=== PATIENT | female | born 1995 | race Caucasian/White ===

== ENCOUNTER → 2019-12-26 10:10 | Outpatient (CLI) | payer OTHER, SELFPAY ==
--- NOTE | ~2019-12-26 | US_ITS ---
EXAMINATION: US OB transvaginal DATE: 12/26/2019 11:44 INDICATION: Uncertain dates. TECHNIQUE: Real-time transvaginal pelvic ultrasound was performed. COMPARISON: None. FINDINGS: The uterus measures 8.6 x 5.1 x 5.9 cm. There is an intrauterine gestational sac. A yolk sac is iden tified. The crown rump length measures 10 mm, which correlates with an estimated gestational a ge of 7 weeks and 0 day(s) (+/-) 4 day(s). heart motion is identified measuring 124 beats per m inute (bpm) by M-mode Doppler. The ovaries are not visualized. There is no free fluid in the pelvis. IMPRESSION: 1. Single living intrauterine gestation with estimated date of delivery of 08/13/2020. Reviewed, dictated and finalized at location A. TH INSURANCE SALES AGENT IMPRESSION: 1. Single living intrauterine gestation with estimated date of delivery of 08/13.
== END ==
PROVIDERS: Visit Provider Obstetrics & Gynecology
DX: O26.841 Uterine size-date discrepancy, first trimester (principal); Z3A.01 Less than 8 weeks gestation of pregnancy
CPT/HCPCS: 76817

== ENCOUNTER → 2020-03-29 08:15 | Outpatient (CLI) | payer OTHER, SELFPAY ==
--- NOTE | ~2020-03-29 | US_ITS ---
EXAMINATION: US OB >= 14 weeks Fetus DATE: 03/29/2020 09:34 INDICATION: Second trimester anatomic survey TECHNIQUE: Real-time ultrasound of the pelvis was performed. COMPARISON: 12/26/2019 FINDINGS: There is a single living fetus in vertex presentation. The placenta is anterior and 3.7 cm from the i nternal cervical os. heart rate is 152 beats per minute (bpm). cardiac activity and feta l movement are noted. The amniotic fluid index is subjectively normal. The following anatomy was identified as normal: 4 chamber heart 3 vessel cord cord insertion kidneys urinary bladder stomach spine diaphragm ventricles cisterna magna cerebellum The following biometric data were obtained: Biparietal diameter (BPD): 5.3 cm; head circumference (HC): 19.3 cm; abdominal circumference (AC): 17 .2 cm; femur length (FL): 3.5 cm. These measurements are concordant. Estimated weight is 445 g +/- 66 g, which correlates with the greater than 97th percentile when 08/13/2020 is used as estimated date of delivery. As single measurements, these parameters are each equal to the following estimated gestational ages w ith ranges of +/- 2 standard deviations: BPD: 22 weeks 33 days ( 20 weeks 4 days - 24 weeks 1 days). HC: 21 weeks 4 days ( 20 weeks 1 days - 23 weeks 0 days). AC: 22 weeks 2 days ( 20 weeks 1 days - 24 weeks 2 days). FL: 21 weeks 1 days ( 19 weeks 2 days - 22 weeks 6 days). estimated gestational age based solely on measurements from this exam is 21 weeks 6 days +/- 1 weeks 4 days. IMPRESSION: 1. Single living fetus in vertex presentation. 2. Estimated weight is 445 g +/- 66 g, which correlates with the greater than 97th percentile w hen 08/13/2020 is used as estimated date of delivery. Reviewed, dictated and finalized at location A. EDURE ANALYST IMPRESSION: 1. Single living fetus in vertex presentation. 2. Estimated weight is 445 g +/- 66 g, which correlates with the greater than 97th percentile when 08/13/2020 is used as estimated date of delivery.
== END ==
PROVIDERS: Visit Provider Obstetrics & Gynecology
DX: Z36.89 Encounter for other specified antenatal screening (principal)
CPT/HCPCS: 76805

== ENCOUNTER → 2020-07-11 13:39 | Outpatient (CLI) | payer OTHER, SELFPAY ==
--- NOTE | ~2020-07-11 | US_ITS ---
EXAMINATION: US OB follow up DATE: 07/11/2020 14:16 INDICATION: Estimated size less than expected for estimated gestational age during third trimester pr egnancy. TECHNIQUE: Real-time ultrasound of the pelvis was performed. The interpreting radiologist was not pre sent for the study. COMPARISON: 03/29/2020 FINDINGS: There is a single living fetus in vertex presentation. The placenta is anterior and not low-lying. F etal heart rate is 174 beats per minute (bpm). The amniotic fluid index is 13.8 cm, which is normal (5th%-95%: 7.9-24.9 cm at 35 weeks estimated gestational age). The following biometric data were obtained: BPD: 9.5 cm -> 38 weeks 4 days Head circumference: 33.0 cm -> 37 weeks 4 days Abdominal circumference: 35.9 cm -> 39 weeks 5 days Femur length: 7.1 cm -> 38 weeks 3 days Head circumference to abdominal circumference ratio: 0.92 (normal range 0.89-1.06). Borderline brachycephaly with cephalic index of 86.1 (normal range 70-86). Mildly decreased femoral length to abdominal circumference ratio of 19.85 (normal range 20-24). Estimated weight: 3559 g (+/-) 534 g or 7 lbs. 14 oz. (+/-) 1 lbs. 3 oz. IMPRESSION: 1. Single living fetus in vertex presentation. 2. Normal amniotic fluid index of 13.8 cm. 3. Tachycardia with heart rate of 174 bpm 4. Estimated weight is >97th percentile by Hadlock criteria when 08/13/2020 is used as the estima radha date of delivery (DARIUS). Please correlate with clinical information or earlier ultrasounds for mos t accurate DARIUS. 5. Mildly discordant biometric data with borderline brachycephaly and mildly decreased femoral length to head circumference ratio. Reviewed, dictated and finalized at location A. IMPRESSION: 1. Single living fetus in vertex presentation. 2. Normal amniotic fluid index of 13.8 cm. 3. Tachycardia with heart rate of 174 bpm 4. Estimated weight is >97th percentile by Hadlock criteria when 08/13/2020 is used as the estimated date of delivery (DARIUS). Please correlate with clinica l information or earlier ultrasounds for most accurate DARIUS. 5. Mildly discordant biometric data with borderline brachycephaly and mildly de creased femoral length to head circumference ratio.
== END ==
PROVIDERS: Visit Provider Nurse Practitioner
DX: Z34.93 Encounter for supervision of normal pregnancy, unspecified, third trimester (principal); Z3A.00 Weeks of gestation of pregnancy not specified
CPT/HCPCS: 76816

== ENCOUNTER 2020-08-01 23:40 | Inpatient (IN) | payer OTHER, SELFPAY ==
[2020-08-02] VITALS (20 sets, daily range): BP systolic 108–134; BP diastolic 63–86; PULSE 44–70; RESP 9–16; TEMP 36.1–36.8; O2SAT 96–99; BMI 26.4
--- NOTE | 2020-08-02 00:05 | PC.NURSE ---
Pt states she is planned scheduled for third degree laceration with previous . Pt states baby got stuck for 4 hours before vaginal delivery. SROM at 2330 clear flluid. Pt is not feeling contractions on arrvial.
[2020-08-02] MEDS: LACTATED RINGERS 1,000 ML 125 ML IV CONT ×2 (00:41→02:03)
[2020-08-02 00:43] LABS: Basophils Percent Auto 0.4 % (0.2-1.2); Eosinophils Percent Auto 0.2 % (0-4.4); Hematocrit 35.4 % (37.0-47.0); Hemoglobin 11.4 g/dL (12.0-15.0); Immature Granulocyte Absolute 0.02 K/mm3 (0.00-0.031); Immature Granulocyte Percent A 0.2 % (0-0.5); Lymphocytes Percent Auto 24.8 % (18.3-44.2); Mean Corpuscular HGB Conc 32.2 g/dl (32-36); Mean Corpuscular Hemoglobin 26.8 pg (26-34); Mean Corpuscular Volume 83.3 fl (80-100); Mean Platelet Volume 12.1 fl (7.4-10.4); Monocytes Absolute Auto 0.5 K/mm3 (0.1-0.6); Monocytes Percent Auto 5.4 % (2.6-8.5); Neutrophils Absolute Auto 5.8 K/mm3 (1.3-6.7); Platelet Count Result 184 k/mm3 (150-375); Red Blood Count 4.25 M/mm3 (4.2-5.4); Red Cell Distribution Width 12.4 % (11.5-14.5); White Blood Count 8.5 K/mm3 (4.5-10.0)
--- NOTE | 2020-08-02 01:10 | LDADM ---
This patient, Adi Parish, was admitted to OB Post 116 on 08/01/20 at 23:40. Plans for labor, pain management and were discussed with patient. Patient/family oriented to hospital policies and general routines including ID bracelet, bed and alarms, visiting hours, pain management, procedures, bathroom and other care routines, personal items, smoking policy, room service/diet and guest tray routines, infant security routines, and visiting hours. Patient/Family are encouraged to report perceived risks to care and to ask questions if they do not understand what they are told or what they should do. See OBIX for further documentation. SCHEDULED . SROM AT 2330
--- NOTE | 2020-08-02 01:51 | WPDANESEPPF ---
Anes - Initial Pre Proc Eval Procedure: Operation Date: 08/06/20 07:30 Proposed Procedures p Primary Section - Ian Cooper MD Date/Time: 08/02/20 01:51 Surgeon: Ian Cooper MD Pre Op Diagnosis: SROM, Primary Patient Data Age: 25 Gender: F Height: Weight: Allergies Allergy/AdvReac Type Severity Reaction Status Date / Time No Known Allergies Allergy Unverified 02/11/16 14:42 Home Medications Medication Instructions Recorded Confirmed Type PNV cmb#95-ferrous fumarate-FA 1 tablet PO DAILY 07/24/20 07/24/20 History [] Laboratory Tests 08/02/20 08/02/20 00:33 00:33 WBC 8.5 K/mm3 K/mm3 (4.5-10.0) RBC 4.25 M/mm3 M/mm3 (4.2-5.4) Hgb 11.4 g/dL L g/dL (12.0-15.0) Hct 35.4 % L % (37.0-47.0) MCV 83.3 fl fl (80-100) MCH 26.8 pg pg (26-34) MCHC 32.2 g/dl g/dl (32-36) RDW 12.4 % % (11.5-14.5) Plt Count 184 k/mm3 k/mm3 (150-375) MPV 12.1 fl H fl (7.4-10.4) Immature Gran % (Auto) 0.2 % % (0-0.5) Neut % (Auto) 69.0 % % (45.5-73.1) Lymph % (Auto) 24.8 % % (18.3-44.2) [place] % (Auto) 5.4 % % (2.6-8.5) Eos % (Auto) 0.2 % % (0-4.4) Baso % (Auto) 0.4 % % (0.2-1.2) Lymph # (Auto) 2.10 K/mm3 K/mm3 (0.9-3.2) [place] # (Auto) 0.5 K/mm3 K/mm3 (0.1-0.6) Eos # (Auto) 0.0 K/mm3 K/mm3 (0-0.3) Baso # (Auto) 0.0 K/mm3 K/mm3 (0.0-0.1) Abs Immat Gran (auto) 0.02 K/mm3 K/mm3 (0.00-0.031) Absolute Neuts (auto) 5.8 K/mm3 K/mm3 (1.3-6.7) Absolute Nucleated RBC 0.0 K/mm3 K/mm3 (0.0-0.012) Nucleated RBC % 0.0 % % (0.0-0.2) RPR Pending Patient hx anesthesia problems: none Family hx anesthesia problems: none [facility] Family History Family History (Updated 07/24/20 @ 15:42 by Jayal Good RN) Other No pertinent family history Social History Social History Smoking status: Never smoker Second hand tobacco smoke exposure: No Alcohol intake: never Substance use: never Gender identity (if verbalized by the patient): Female Spiritual care concerns: No Anes - Eval Final PreProcedure Day of Procedure 08/02/20 01:51 Patient weight: overweight Heart: regular rate and rhythm Lungs: clear to auscultation and normal air movement Airway: Mallampati scale class 1 Neurological: alert and oriented Last oral intake: >/= 8 hours ASA classification: II Emergent: no Anesthetic plan: proceed Anesthesia type and monitoring: regional spinal and standard monitoring Informed Consent: The patient's anesthetic plan and its attendant risks and benefits were discussed with the patient/family/POA. Questions were solicited and answers provided to the satisfaction of the patient/family/POA.
[2020-08-02] MEDS: ceFAZolin 2 GM/D5W 50 ML 2 GM/50 ML BAG IVPB (01:55)
--- NOTE | 2020-08-02 02:12 | P.HP_ITS ---
H&P: HPI History of Present Illness Date/Time: 08/02/20 02:12 Chief Complaint: SROM Narrative: 25 yo at 38 wks here with SROM. Patient and Dr. Cooper discussed plan for delivery and decided to proceed with primary csection due to 3rd degree laceration with prior delivery after 3 hours pushing. Patient wishes to proceed with planned csection now. has been uncomplicated to this point. labs: O+; Rubella immune; RPR, HIV, and HepBSAg all -; GBS -. [facility] Family History Family History (Updated 07/24/20 @ 15:42 by Jayla Good, RN) Other No pertinent family history Social History Social History Smoking status: Never smoker Second hand tobacco smoke exposure: No Alcohol intake: never Substance use: never Gender identity (if verbalized by the patient): Female Spiritual care concerns: No Meds Home Medications and Allergies Home Medications Medication Instructions Recorded Confirmed Type PNV cmb#95-ferrous fumarate-FA 1 tablet PO DAILY 07/24/20 07/24/20 History [] Allergies Allergy/AdvReac Type Severity Reaction Status Date / Time No Known Allergies Allergy Unverified 02/11/16 14:42 Exam Const: General: comfortable and no acute distress Nutritional Appearance: average body habitus GI: GI Palp: Yes Other GI palpation findings present (gravid) : Other: cervix 3 cm grossly ruptured H&P: Results Labs Labs: Short CBC 08/02/20 Range/Units 00:33 WBC 8.5 (4.5-10.0) K/mm3 Hgb 11.4 L (12.0-15.0) g/dL Hct 35.4 L (37.0-47.0) % Plt Count 184 (150-375) k/mm3 Assessment and Plan Assessment and plan (1) 38 weeks gestation of : Code(s): Z3A.38 - 38 weeks gestation of Status: Acute (2) with poor obstetric history: Code(s): O09.299 - Supervision of with other poor reproductive or obstetric history, unspecified trimester Status: Acute Assessment and Plan: Prior 3 hours pushing with 3rd degree laceration. Plan to proceed with Dr. Cooper plan for primary csection.
--- NOTE | 2020-08-02 03:00 | P.OP_ITS ---
Procedure Note - Detailed Date of Procedure 08/02/20 Pre-op Diagnosis SROM, Primary for poor OB history Post-op Diagnosis same Procedure Performed LT Surgeon Shyla Venegas MD Anesthesia spinal Findings Male infant with Apgars of 9 and 9 weighing 8 lb 3 oz; normal-appearing tubes ovaries and uterus Description of Procedure patient was taken to the operating room and placed under anesthesia in the dorsal supine position with a leftward tilt. The patient was prepped and draped in usual sterile fashion. Once anesthesia was deemed adequate, the Pfannenstiel skin incision was made with a scalpel and carried down to the underlying layer of fascia. The fascia was nicked in the midline with the scalpel and extended laterally using Li scissors. Bleeding vessels in the subcutaneous tissues were cauterized with Bovie. The [facility] is a used to tent the fascia which was then dissected off using sharp and blunt dissection. The rectus muscles were in the midline and the peritoneum tented and entered with Metzenbaum was. The incision was extended with blunt traction. The bladder blade is placed and the vesicouterine peritoneum tented with a Peon. The bladder flap was created using Metzenbaum and blunt dissection. The b ladder blade is replaced. The lower uterine segment is incised in a transverse fashion with the scalpel. The incision is extended laterally using blunt traction. The infant's head was brought up into the incision and delivered while the sales office assistant applied fundal pressure. The cord was clamped and cut and the handed to the waiting nursery nurse. The cord blood is taken and the placenta delivered using manual traction. The uterus is cleared of all clots and debris and exteriorized. The uterine incision was closed using 0 Monocryl in a running locked fashion with the same suture used to imbricate. Two additional lsdiyu-rp-eokha sutures were required in the midline for hemostasis. The cul-de-sac is irrigated and the uterus returned to the abdomen. The gutters were irrigated. The incision was again inspected and noted to be hemostatic. The fascial incision was closed using 0 Vicryl in a running fashion. The subcutaneous tissues were irrigated and additional vessels cauterized for hemostasis. The skin incision is closed using 4 0 Vicryl in a subcuticular fashion. Dermaflex was placed over the incision. Sponge, instrument, and needle counts are correct per the OR staff. Ancef was given prior to incision and the patient is taken to recovery in stable condition. Estimated Blood Loss 875 Drains Yes (clemens) Packing No Pathology none sent Complications No immediate complications Condition stable Disposition floor
--- NOTE | 2020-08-02 03:05 | PM.OBDSVD ---
DS: Admitting Diagnosis Admitting Diagnosis Admitting Diagnosis: IUP 38 weeks with SROM; poor OB history DS: Discharge Diagnosis Discharge Diagnosis (1) delivery delivered: Code(s): O82 - Encounter for delivery without indication Status: Acute (2) 38 weeks gestation of : Code(s): Z3A.38 - 38 weeks gestation of Status: Acute (3) with poor obstetric history: Code(s): O09.299 - Supervision of with other poor reproductive or obstetric history, unspecified trimester Status: Acute Assessment and Plan: Per patient report pushed 3 hours and had a 3rd degree laceration OB - DS: Summary OB Procedures : Ultrasound OB Procedures Intrapartum: low cervical, transverse OB Procedures: : None Peripartum Data Infant Delivery Method: Section Procedures: Procedures Operation Date: 08/02/20 02:25 <No data on this case meets the specified criteria> Operation Date: 08/06/20 07:30 <No data on this case meets the specified criteria> complications: none Status at Discharge Functional status at discharge: independent ambulation Overall status at discharge: patient is progressing back to baseline Time Spent with Patient Time attestation: Total time spent providing and/or coordinating discharge services: DS: Data Data Completed and Pending Labs on day of discharge: Labs from last 24 hours 08/02/20 08/02/20 00:33 00:33 WBC 8.5 RBC 4.25 Hgb 11.4 L Hct 35.4 L MCV 83.3 MCH 26.8 MCHC 32.2 RDW 12.4 Plt Count 184 MPV 12.1 H Immature Gran % (Auto) 0.2 Neut % (Auto) 69.0 Lymph % (Auto) 24.8 [place] % (Auto) 5.4 Eos % (Auto) 0.2 Baso % (Auto) 0.4 Lymph # (Auto) 2.10 [place] # (Auto) 0.5 Eos # (Auto) 0.0 Baso # (Auto) 0.0 Abs Immat Gran (auto) 0.02 Absolute Neuts (auto) 5.8 Absolute Nucleated RBC 0.0 Nucleated RBC % 0.0 RPR Pending Discharge Plan Discharge Attending physician on discharge: Ian Cooper Discharging Clinician: Ian Cooper Patient Disposition: Home, Self-Care Activity: may shower, may drive after 2 weeks and pelvic rest Diet: regular Wound Care Instructions: incision open to air Discharge Instructions: Education: Mom and Baby Guide Given to: Mother Follow-Up: Call your delivering provider's office for an appointment to be seen in: 1 Week Mom and baby should come to the [facility] for the follow-up appointment. Appointment Date/Time: August 05, 2020 at 9:00 am What to expect at your follow-up visit: Physical Assessment Call [phone] if you are unable to keep your appointment time. BREAST CARE: * Wear a snug supportive bra. * For engorgement discomfort: Breast Feeding: * Apply warm moist washcloths * Express milk as needed to relieve engorgement * Wear loose clothing * For sore nipples: * Identify correct latch-on * Apply warm moist washcloths before and after nursing * Air dry nipples after nursing * May apply Lansinoh cream to nipples ABDOMINAL INCISION: (if applicable) * Allow incision to air dry * Do NOT use lotions for powders on your incision * When showering, allow soap and water to run over the incision, but do not wash incision EPISIOTOMY/PERINEAL CARE: * Until bleeding stops, use your luis bottle after urinating * Change your pad frequently throughout the day * No tub baths until seen by your physician - You may shower ACTIVITY: * Rest as much as possible. * Do not exercise or lift anything heavier than your baby (such as laundry or other children.) * Avoid stairs or driving as much as possible. * Do not put anything into the vagina. No douching, tampons, or sexual activity until seen by physician. NOTIFY PHYSICIAN IF YOU HAVE ANY QUESTIONS OR IF ANY
[2020-08-02] MEDS: OXYTOCIN 30 UNITS/NS 500 ML 30 UNITS/500 ML BAG 125 UNITS IV CONT (03:41)
[2020-08-02] MEDS: diphenhydrAMINE HCl INJ 50 MG/ML VIAL 25 MG IV PUSH (05:48)
[2020-08-02] MEDS: DEXTROSE 5%/0.45% SOD CHL 1,000 ML 125 ML IV CONT (08:22)
[2020-08-02] MEDS: KETOROLAC 30 MG/ML VIAL (*BKC) IV PUSH (08:22)
[2020-08-02] MEDS: MULTIVIT/MIN/PREN/FOL AC/IRON TABLET 1 TAB PO (08:25)
[2020-08-02] MEDS: DOCUSATE SODIUM 100 MG CAPSULE PO ×2 (08:25→16:38)
[2020-08-02 09:27] LABS: Rapid Plasma Reagin Non-Reactive (NonReactive)
--- NOTE | 2020-08-02 09:29 | PC.NURSE ---
Consulted with patient, reviewed feeding cues, frequencies, duration of feedings, feeding elimination flow sheet, and signs of adequate intake. Mother comfortable with infant at breast. Demonstrated stimulation techniques to wake for feeding. Assisted with infant to breast. Reviewed positioning/alignment, holding breast and asymmetrical latch on. Infant was able to latch correctly. Infant nursed eagerly, with steady draws and frequent swallowing noted. Reviewed signs of a correct latch, effective nursing and suck swallow ratio. Infant was able to maintain latch without discomfort to mother. Nipple care reviewed. Instructed mother to call out for RN assistance if she is unable to latch for feeding or she has discomfort with nursing. encouraged mom to call out for help as needed or with the next feeding if she wanted help trying more positions. Instructed feeding should be initiated three hours from start of last feeding or if feeding cues are noted before. Mother voiced understanding of information shared.
[2020-08-02] MEDS: LANOLIN (LANSINOH) 7.5 GM CREAM 1 APPLIC TOPICAL (13:41)
[2020-08-02] MEDS: SIMETHICONE 80 MG TAB.CHEW PO (16:38)
[2020-08-02] MEDS: IBUPROFEN 600 MG TABLET PO ×2 (16:38→23:22)
--- NOTE | 2020-08-02 19:10 | PC.NURSE ---
1408-Patient transferred to post room #292 via wheelchair. Support person present. Oriented to unit, room, information board, rooming in, admission packet and security measures. Patient verbalizes understanding.
[2020-08-02] MEDS: ACETAMINOPHEN 325 MG TABLET 650 MG PO (20:15)
[2020-08-03] VITALS: BP 105/60; PULSE 62; RESP 16; TEMP 36.7; O2SAT 97
[2020-08-03] MEDS: IBUPROFEN 600 MG TABLET PO ×3 (05:30→18:24)
[2020-08-03 05:52] LABS: Basophils Percent Auto 0.4 % (0.2-1.2); Eosinophils Percent Auto 0.4 % (0-4.4); Hematocrit 29.7 % (37.0-47.0); Hemoglobin 9.3 g/dL (12.0-15.0); Immature Granulocyte Absolute 0.03 K/mm3 (0.00-0.031); Immature Granulocyte Percent A 0.4 % (0-0.5); Lymphocytes Absolute Auto 1.84 K/mm3 (0.9-3.2); Lymphocytes Percent Auto 21.5 % (18.3-44.2); Mean Corpuscular HGB Conc 31.3 g/dl (32-36); Mean Corpuscular Volume 86.3 fl (80-100); Mean Platelet Volume 11.7 fl (7.4-10.4); Monocytes Absolute Auto 0.5 K/mm3 (0.1-0.6); Monocytes Percent Auto 5.8 % (2.6-8.5); Neutrophils Absolute Auto 6.1 K/mm3 (1.3-6.7); Neutrophils Percent Auto 71.5 % (45.5-73.1); Platelet Count Result 154 k/mm3 (150-375); Red Blood Count 3.44 M/mm3 (4.2-5.4); Red Cell Distribution Width 12.5 % (11.5-14.5); White Blood Count 8.6 K/mm3 (4.5-10.0)
[2020-08-03 08:00] VITALS: BP 124/69; PULSE 62; RESP 18; TEMP 36.7
--- NOTE | 2020-08-03 08:28 | WPDANLDNPN2 ---
Anes-Prog Note L&D-Neuraxial Date/Time: 08/03/20 08:28 Neuraxial medications: intrathecal PF morphine Patient feedback: Patient satisfied with post-operative pain management.
--- NOTE | 2020-08-03 08:28 | WPDANLDPN2 ---
Anes-Prog Note L&D Date/Time: 08/03/20 08:28 Comfortable throughout: section Neuraxial method: spinal Epidural/Spinal procedure site: clean & non-tender Neuro status: Neuro function grossly intact. Cardiovascular status: normal Respiratory status: normal Airway patency: baseline Mental status: baseline Post-Op hydration status: normal Vital Signs: Last Vital Signs Temp 36.7 C 08/03/20 00:00 Pulse 62 08/03/20 00:00 Resp 16 08/03/20 00:00 BP 105/60 08/03/20 00:00 Pulse Ox 97 08/03/20 00:00 Pain score (VAS): none I/O: Intake & Output 08/02/20 08/03/20 08/03/20 23:59 07:59 15:59 Intake Total 950 Output Total 500 Balance 450 Post-procedural complaints: none Patient feedback: Patient satisfied with anesthetic care.
--- NOTE | 2020-08-03 11:16 | PM.OBPNVD ---
OB - PN: Subj Subjective Date/time seen: 08/03/20 11:16 doing well no complaints OB - PN: Obj Data Labs CBC & Chem 7: 08/03/20 05:30 Labs: Laboratory Results - last 24 hr 08/03/20 05:30 WBC 8.6 RBC 3.44 L Hgb 9.3 L Hct 29.7 L MCV 86.3 MCH 27.0 MCHC 31.3 L RDW 12.5 Plt Count 154 MPV 11.7 H Immature Gran % (Auto) 0.4 Neut % (Auto) 71.5 Lymph % (Auto) 21.5 [place] % (Auto) 5.8 Eos % (Auto) 0.4 Baso % (Auto) 0.4 Lymph # (Auto) 1.84 [place] # (Auto) 0.5 Eos # (Auto) 0.0 Baso # (Auto) 0.0 Abs Immat Gran (auto) 0.03 Absolute Neuts (auto) 6.1 Absolute Nucleated RBC 0.0 Nucleated RBC % 0.0 OB - PN A/P Assessment and Plan (1) delivery delivered: Code(s): O82 - Encounter for delivery without indication Status: Acute Assessment and Plan: continue with pp care. Time Spent With Patient Time: Total time spent is greater than 50% in coordination of care (as documented) at patient's floor/unit and/or counseling patient: Exam Narrative: Exam Narrative: inc: c/d/i ff below umbilicus
[2020-08-03] MEDS: POLYSACCHARIDE IRON COMPLEX 150 MG CAPSULE PO ×2 (11:29→16:36)
[2020-08-03] MEDS: MULTIVIT/MIN/PREN/FOL AC/IRON TABLET 1 TAB PO (11:29)
[2020-08-03] MEDS: DOCUSATE SODIUM 100 MG CAPSULE PO ×2 (11:29→16:36)
[2020-08-03] MEDS: ACETAMINOPHEN 325 MG TABLET 650 MG PO (16:36)
[2020-08-03] MEDS: SIMETHICONE 80 MG TAB.CHEW PO (16:37)
[2020-08-03 20:00] VITALS: BP 117/70; PULSE 61; RESP 16; TEMP 36.7; O2SAT 98
[2020-08-04] MEDS: IBUPROFEN 600 MG TABLET PO (00:34)
[2020-08-04 08:30] VITALS: BP 144/76; PULSE 61; RESP 16; TEMP 36.7; O2SAT 97
[2020-08-04] MEDS: POLYSACCHARIDE IRON COMPLEX 150 MG CAPSULE PO (09:01)
[2020-08-04] MEDS: DOCUSATE SODIUM 100 MG CAPSULE PO (09:01)
[2020-08-04] MEDS: MULTIVIT/MIN/PREN/FOL AC/IRON TABLET 1 TAB PO (09:02)
--- NOTE | 2020-08-04 11:20 | PM.OBPNVD ---
OB - PN: Subj Subjective Date/time seen: 08/04/20 11:20 doing well no complaints desires home today OB - PN: Obj Data Labs CBC & Chem 7: 08/03/20 05:30 OB - PN A/P Assessment and Plan (1) delivery delivered: Code(s): O82 - Encounter for delivery without indication Status: Acute Assessment and Plan: d/c home Time Spent With Patient Time: Total time spent is greater than 50% in coordination of care (as documented) at patient's floor/unit and/or counseling patient: Exam Narrative: Exam Narrative: inc cdi ff below umbilicus
--- NOTE | 2020-08-04 11:25 | PM.OBDSVD ---
DS: Admitting Diagnosis Admitting Diagnosis Admitting Diagnosis: SROM DS: Discharge Diagnosis Discharge Diagnosis (1) delivery delivered: Code(s): O82 - Encounter for delivery without indication Status: Acute (2) with poor obstetric history: Code(s): O09.299 - Supervision of with other poor reproductive or obstetric history, unspecified trimester Status: Acute OB - DS: Summary OB Procedures : Ultrasound OB Procedures Intrapartum: OB Procedures: : None Peripartum Data Procedures: Procedures Operation Date: 08/02/20 02:25 Actual Procedure Side Surgeon p Section Not Applicable Shyla Venegas MD Operation Date: 08/06/20 07:30 <No data on this case meets the specified criteria> Time Spent with Patient Time attestation: Total time spent providing and/or coordinating discharge services: Discharge Plan Discharge Attending physician on discharge: Ian Cooper Discharging Clinician: Ian Cooper Patient Disposition: Home, Self-Care Activity: may shower, may drive after 2 weeks and pelvic rest Diet: regular Wound Care Instructions: incision open to air Patient Instructions: Antibiotic Form Stand Alone Forms: General Discharge Information Follow-up/Referrals: Ian Cooper MD [Physician] - 1 Week (and 6 wk) Discharge Medications: New hydrocodone-acetaminophen 5-325 mg Tablet 1 tablet PO Q3H PRN (Reason: Moderate Pain (4-6)) Qty: 20 RF: 0 Continued PNV cmb#95-ferrous fumarate-FA [] 28 mg iron- 800 mcg Tablet 1 tablet PO DAILY RF: 0 Date of admission: 08/01/20 23:40 Primary Care Provider: PHYSICIAN,SENIOR NET SOFTWARE ENGINEER Admitting Provider: Ian Cooper Attending physician on admission: Ian Cooper Condition: Stable
--- NOTE | 2020-08-04 12:01 | PC.NURSE ---
Patient viewed the discharge video [facility] Baby [facility], The First Two Weeks . Patient was given the opportunity and encouraged to ask questions. Patient verbalized understanding of information shared and has been given the mother/baby guide for home reference.
[2020-08-05 09:23] VITALS: BP 140/79; PULSE 72; RESP 16; TEMP 36.8; O2SAT 98
== END 2020-08-04 12:24 | disposition home or self-care (01) | DRG 788 ==
LOC: ANHLDR 08-02 00:11 → ANHOBPP 08-02 00:48 → ANHLDR 08-02 02:31 → ANHOB2 08-02 05:17
PROVIDERS: Admitting Provider Obstetrics & Gynecology Gynecology; Visit Provider Obstetrics & Gynecology
PROC: 10D00Z1 Extraction of Products of Conception, Low, Open Approach (ICD-10-PCS; CPT 59514; principal; 2020-08-02 02:25)
DX: O99.892 Other specified diseases and conditions complicating childbirth (principal); Z37.0 Single live birth; Z3A.38 38 weeks gestation of pregnancy; Z87.59 Personal history of other complications of pregnancy, childbirth and the puerperium
CPT/HCPCS: 36415; 85025; 86592; 86850; 86900; 86901; A9270; J0690; J1200; J1885; J2274; J2405; J2590; J7120

== ENCOUNTER 2020-11-06 14:55 | Emergency (ER) | payer OTHER, SELFPAY ==
[2020-11-06 15:03] VITALS: BP 147/85; PULSE 69; RESP 17; TEMP 36.9; O2SAT 100
[2020-11-06 15:46] LABS: Basophils Absolute Auto 0.1 K/mm3 (0.0-0.1); Eosinophils Absolute Auto 0.1 K/mm3 (0-0.3); Hematocrit 36.5 % (37.0-47.0); Hemoglobin 11.2 g/dL (12.0-15.0); Immature Granulocyte Absolute 0.01 K/mm3 (0.00-0.031); Immature Granulocyte Percent A 0.1 % (0-0.5); Lymphocytes Absolute Auto 2.27 K/mm3 (0.9-3.2); Lymphocytes Percent Auto 33.7 % (18.3-44.2); Mean Corpuscular HGB Conc 30.7 g/dl (32-36); Mean Corpuscular Hemoglobin 24.4 pg (26-34); Mean Corpuscular Volume 79.5 fl (80-100); Mean Platelet Volume 10.1 fl (7.4-10.4); Monocytes Absolute Auto 0.4 K/mm3 (0.1-0.6); Monocytes Percent Auto 5.6 % (2.6-8.5); Neutrophils Absolute Auto 3.9 K/mm3 (1.3-6.7); Neutrophils Percent Auto 58.6 % (45.5-73.1); Platelet Count Result 310 k/mm3 (150-375); Red Blood Count 4.59 M/mm3 (4.2-5.4); Red Cell Distribution Width 14.5 % (11.5-14.5); White Blood Count 6.7 K/mm3 (4.5-10.0)
[2020-11-06 15:55] LABS: INR 0.9; Prothrombin Time 12.3 Seconds (11.1-14.7)
--- NOTE | 2020-11-06 16:15 | ED.FEMALEGU ---
HPI - Female Genitourinary General Chief complaint: Vaginal Bleeding Stated complaint: VAG BLEEDING Time Seen by Provider: 11/06/20 15:28 History of Present Illness HPI Narrative: Patient presents with vaginal bleeding. Reports she had a back in July she has been breast-feeding and stopped breast-feeding almost 1 week ago. Today she noted heavy menstrual bleeding and is going through 1 tampon every 1-1/2 hours. Reports she is bleeding through to her close. She denies any lightheadedness or dizziness she reports she has some lower abdominal cramping denies any nausea or vomiting. She has a follow-up with her [facility] next week for initiation of control Related Data Home Medications Medication Instructions Recorded Confirmed No Home Medications 11/06/20 11/06/20 Allergies Allergy/AdvReac Type Severity Reaction Status Date / Time No Known Allergies Allergy Verified 11/06/20 15:29 Review of Systems Review of Systems: CONSTITUTIONAL: Denies fever, chills, or sweats. EYES: Denies visual changes, redness, or discharge. ENT: Denies rhinorrhea, congestion, sore throat, or otalgia. CARDIOVASCULAR: Denies chest pain, palpitations, or edema. RESPIRATORY: Denies cough or dyspnea. GASTROINTESTINAL: Denies nausea, vomiting, or diarrhea. GENITOURINARY: Denies dysuria or hematuria. SKIN: Denies rash or itching. MUSCULOSKELETAL: Denies back pain, joint pain, or myalgia. NEUROLOGIC: Denies headache, numbness, dizziness, or weakness. PSYCHIATRIC: Denies anxiety or depression. All systems reviewed & are unremarkable except as noted in HPI and below PMFSH Family History Family History Other No pertinent family history Social History Social History Smoking status: Never smoker Second hand tobacco smoke exposure: No Alcohol intake: never Substance use: never Gender identity (if verbalized by the patient): Female Spiritual care concerns: No Exam Narrative: GENERAL: Well-appearing, well-nourished, and in no acute distress. HEAD: Normocephalic, atraumatic. EYES: PERRLA and EOMI. ENT: Nares clear, no rhinorrhea or epistaxis. Mucous membranes moist. NECK: Supple. No masses. No JVD ABDOMEN: Soft, nontender, nondistended. PELVIC EXAM: Nursing entry level account manager present throughout the entire exam external exam without ulcers lacerations or focal areas of tenderness. Speculum exam had minor amount of blood in the vaginal vault removed with swab scant blood noted in the cervical os easily cleared no appreciable active bleeding. EXTREMITIES: Normal range of motion. No edema. SKIN: Warm, dry, no rash. NEURO: No focal deficits. Alert and oriented x3. PSYCH: Normal mood and affect. Course Reevaluation(s) Reevaluation #1: Patient resting comfortably labs and plan reviewed with patient. Patient comfortable outpatient plan. Date: 11/06/20 Time: 16:18 Vital Signs Vital signs: Vital Signs Temperature 36.9 C 11/06/20 15:03 Pulse Rate 69 11/06/20 15:03 Respiratory Rate 17 11/06/20 15:03 Blood Pressure 147/85 H 11/06/20 15:03 Pulse Oximetry 100 11/06/20 15:03 Temperature 36.9 C 11/06/20 15:03 Pulse Rate 69 11/06/20 15:03 Respiratory Rate 17 11/06/20 15:03 Blood Pressure 147/85 H 11/06/20 15:03 Pulse Oximetry 100 11/06/20 15:03 MDM - Female Genitourinary MDM Narrative Medical decision making narrative: H&P as above, vss, pt looks clinically well, exam with mild amount of blood in vaginal vault otherwise exam is clinically unremarkable, labs clinically unremarkable, additional labs/img considered, symptomatic relief available as needed, on reevaluation pt continues to looks clinically well. Suspect vaginal bleeding related to discontinuation of breast-feeding. Patient is already scheduled for close follow-up with [facility] for consideration of control. With a reassuring work-up
[2020-11-06 16:21] LABS: Beta HCG Quantitative < 2.39 mIU/ML
== END 2020-11-06 17:19 | disposition home or self-care (01) ==
LOC: ANHED 16:25
PROVIDERS: Physician Assistant; Emergency Provider Emergency Medicine; PCP Obstetrics & Gynecology
DX: N93.9 Abnormal uterine and vaginal bleeding, unspecified (principal)
CPT/HCPCS: 36415; 84702; 85025; 85610; 85730; 86850; 86900; 86901; 99284

== ENCOUNTER 2022-08-21 07:27 | Outpatient (CLI) | payer OTHER, SELFPAY ==
[2022-08-21 08:03] LABS: Basophils Absolute Auto 0.1 K/mm3 (0.0-0.1); Eosinophils Absolute Auto 0.1 K/mm3 (0-0.3); Eosinophils Percent Auto 1.4 % (0-4.4); Hematocrit 38.4 % (37.0-47.0); Hemoglobin 11.6 g/dL (12.0-15.0); Immature Granulocyte Absolute 0.01 K/mm3 (0.00-0.031); Immature Granulocyte Percent A 0.2 % (0-0.5); Lymphocytes Absolute Auto 1.74 K/mm3 (0.9-3.2); Lymphocytes Percent Auto 34.7 % (18.3-44.2); Mean Corpuscular HGB Conc 30.2 g/dl (32-36); Mean Corpuscular Hemoglobin 25.3 pg (26-34); Mean Corpuscular Volume 83.7 fl (80-100); Mean Platelet Volume 9.9 fl (7.4-10.4); Monocytes Absolute Auto 0.3 K/mm3 (0.1-0.6); Neutrophils Absolute Auto 2.9 K/mm3 (1.3-6.7); Neutrophils Percent Auto 57.7 % (45.5-73.1); Platelet Count Result 315 k/mm3 (150-375); Red Blood Count 4.59 M/mm3 (4.2-5.4); Red Cell Distribution Width 14.3 % (11.5-14.5)
[2022-08-21 08:11] LABS: Cholesterol 158 mg/dL (0-200); HDL Direct 56 mg/dL; Triglycerides 43 mg/dL (<150)
[2022-08-21 08:22] LABS: LDL Cholesterol Direct 76 mg/dL
[2022-08-21 08:29] LABS: Beta HCG Quantitative < 2.39 mIU/ML
[2022-08-21 08:56] LABS: Hemoglobin A1C 5.5 % (<5.7)
[2022-08-25 11:47] LABS: DHEA-Sulfate 304 mcg/dL (18-391)
[2022-08-26 14:16] LABS: FSH 8.6 mIU/mL (***); Progesterone 0.7 ng/mL (***); Prolactin 17.9 ng/mL (***)
[2022-08-26 18:44] LABS: Testosterone Total 27 ng/dL (2-45)
[2022-08-28 06:41] LABS: Estradiol, Ultrasensitive 37 pg/mL
== END 2022-08-21 07:28 | disposition home or self-care (01) ==
PROVIDERS: PCP Family Medicine Sports Medicine; Visit Provider Obstetrics & Gynecology
DX: N92.6 Irregular menstruation, unspecified (principal); L70.9 Acne, unspecified; L65.9 Nonscarring hair loss, unspecified
CPT/HCPCS: 36415; 80061; 82627; 82670; 83001; 83036; 83498; 83525; 83527; 84144; 84146; 84402; 84403; 84443; 84702; 85025

== ENCOUNTER 2023-08-05 12:36 | Emergency (ER) | payer OTHER, SELFPAY ==
--- NOTE | ~2023-08-05 | US_ITS ---
EXAMINATION: US OB <=14 wk fetus w TV DATE: 08/05/2023 14:31 INDICATION: Vaginal bleeding. Early . Beta-hCG is 3,633 mIU/mL. TECHNIQUE: Real-time transabdominal and transvaginal pelvic ultrasound was performed. COMPARISON: None. FINDINGS: TRANSABDOMINAL ULTRASOUND: The uterus measures 9.8 x 5.2 x 5.47 m. TRANSVAGINAL ULTRASOUND: The endometrial complex measures 2.8 cm in thickness. There is no visible in trauterine gestational sac. The ovaries are not visualized. There is physiologic free fluid in the pe lvis. IMPRESSION: 1. No visible intrauterine gestational sac, which may be seen with ectopic , spontaneous ab ortion, or gestational trophoblastic disease. Reviewed, dictated and finalized at location A. IMPRESSION: 1. No visible intrauterine gestational sac, which may be seen with ectopic pre gnancy, spontaneous , or gestational trophoblastic disease.
[2023-08-05 12:40] VITALS: BP 151/79; PULSE 80; RESP 20; TEMP 36.6; O2SAT 99
[2023-08-05 12:51] LABS: Basophils Absolute Auto 0.1 K/mm3 (0.0-0.1); Basophils Percent Auto 0.5 % (0.2-1.2); Eosinophils Percent Auto 0.2 % (0-4.4); Hematocrit 39.7 % (37.0-47.0); Hemoglobin 12.2 g/dL (12.0-15.0); Immature Granulocyte Absolute 0.02 K/mm3 (0.00-0.031); Immature Granulocyte Percent A 0.2 % (0-0.5); Lymphocytes Percent Auto 28.6 % (18.3-44.2); Mean Corpuscular HGB Conc 30.7 g/dl (32-36); Mean Corpuscular Hemoglobin 25.3 pg (26-34); Mean Corpuscular Volume 82.4 fl (80-100); Mean Platelet Volume 9.6 fl (7.4-10.4); Monocytes Absolute Auto 0.5 K/mm3 (0.1-0.6); Neutrophils Absolute Auto 6.2 K/mm3 (1.3-6.7); Neutrophils Percent Auto 65.5 % (45.5-73.1); Platelet Count Result 310 k/mm3 (150-375); Red Blood Count 4.82 M/mm3 (4.2-5.4); Red Cell Distribution Width 15.2 % (11.5-14.5); White Blood Count 9.4 K/mm3 (4.5-10.0)
[2023-08-05 13:03] LABS: INR 1.1; Prothrombin Time 14.5 Seconds (11.1-14.7)
[2023-08-05 13:04] LABS: Alanine Aminotransferase 18 U/L (6-35); Alkaline Phosphatase 66 U/L (38-126); Anion Gap 8 mmol/L (4-12); Aspartate Amino Transferase 22 U/L (14-36); Bilirubin,Total 1.8 mg/dL (0.2-1.3); Blood Urea Nitrogen 11 mg/dL (7-17); Calcium 9.7 mg/dL (8.4-10.2); Carbon Dioxide 23 mmol/L (22-30); Chloride 106 mmol/L (98-107); Estimated CRCL calculation 124 ml/min; Estimated Glomerular Filt Rate > 60; Glucose 93 mg/dL (65-110); Partial Thromboplastin Time 30.1 Seconds (22.3-36.8); Potassium 3.9 mmol/L (3.4-5.0); Sodium 137 mmol/L (137-145)
[2023-08-05 15:31] VITALS: BP 132/72; PULSE 65; RESP 18; O2SAT 100
--- NOTE | 2023-08-05 16:47 | ED.PREGNANCY ---
HPI - General Chief complaint: Vaginal Bleeding Stated complaint: vag bleeding 8 weeks Time Seen by Provider: 08/05/23 15:37 Source: patient Mode of arrival: ambulatory Limitations: no limitations History of Present Illness HPI Narrative: This is a 28 year old female that presents to the ER for vaginal bleeding in early . Reports she was about 8 weeks by LMP. Started to have spotting last night and is now experiencing heavier bleeding. Dr. Jose is her OB. She has not had an US yet this . Reports mild pelvic cramping. She saw her OB this morning, but started to have more heavy bleeding which prompted her to be seen. Denies fever or vomiting. 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 Suppression of menses Surgical History Surgical History History of delivery Family History Family History Other No pertinent family history Social History Social History Smoking status: Never smoker Second hand tobacco smoke exposure: No Alcohol intake: current Alcohol use details: rare Substance use: never Lack of Transportation: No Lack of Food: Never True Current Housing: I Have Housing Concerned About Future Housing: No Difficulty Paying Gas/Electric Bills: No Difficulty Paying for Meds: No Currently Unemployed: No Education: Bachelor's Degree Difficulty w/ Childcare or Family Care: No Living arrangements: with family Occupation/Education: occupation Gender identity (if verbalized by the patient): Female Sexual Orientation (if Verbalized by the Patient): Straight or Heterosexual Spiritual care concerns: No Exam Narrative: GENERAL: Well-appearing, well-nourished, and in no acute distress. HEAD: Normocephalic, atraumatic. EYES: EOMI. CHEST: No respiratory distress. HEART: Regular rate EXTREMITIES: Normal range of motion. No edema. SKIN: Warm, dry, no rash. NEURO: No focal deficits. Alert and oriented x3. PSYCH: Normal mood and affect PELVIC: Cervix is open. Small amount of dark red blood in the vaginal vault with tissue noted Course Course Emergency Course: Patient and family updated on workup and agree with plan of care Consultations Consultation #1: Spoke with Dr. Wilkinson about patient and workup. Would like patient to be given prescription for Motrin and hydrocodone. Update them in the morning. Remain NPO after midnight if she possibly needs a D&C tomorrow Date: 08/05/23 Vital Signs Vital signs: Vital Signs Temperature 97.8 F 08/05/23 12:40 Pulse Rate 80 08/05/23 12:40 Respiratory Rate 20 08/05/23 12:40 Blood Pressure 151/79 H 08/05/23 12:40 Pulse Oximetry 99 08/05/23 12:40 Oxygen Delivery Room Air 08/05/23 12:40 Temperature 97.8 F 08/05/23 12:40 Pulse Rate 65 08/05/23 15:31 Respiratory Rate 18 08/05/23 15:31 Blood Pressure 132/72 08/05/23 15:31 Pulse Oximetry 100 08/05/23 15:31 Oxygen Delivery Room Air 08/05/23 12:40 MDM - OB/Uterine Contractions MDM Narrative Medical decision making narrative: Patient presents to the emergency department for vaginal bleeding in early . Her vitals are stable. Hemoglobin is normal. No concerning amount of bleeding on exam. Patient is O positive. Quantitative HCG 3632. Obstetric ultrasound is without a visible intrauteri
== END 2023-08-05 17:51 | disposition home or self-care (01) ==
PROVIDERS: Emergency Medicine; Emergency Provider Physician Assistant; PCP Family Medicine Sports Medicine
DX: O20.0 Threatened abortion (principal); O20.9 Hemorrhage in early pregnancy, unspecified; Z3A.08 8 weeks gestation of pregnancy
CPT/HCPCS: 36415; 76801; 76817; 80053; 84702; 85025; 85461; 85610; 85730; 86850; 86900; 86901; 99284

== ENCOUNTER 2024-05-02 07:39 | Outpatient (CLI) | payer OTHER, SELFPAY ==
--- OUTSIDE RECORDS SUMMARY | 2024-05-02 07:42 | XMS_ITS | Clinical Summary ---
Author Organization [facility] - [address] [facility] [address] [place] [address] Phone Care Team Providers Care Imaging Administrator Name Role Phone Jaime Fung MD Primary Care Provider [phone] Social History Tobacco Use Types Packs/Day Years Used Date Smoking Tobacco: Never Assessed Comments Unknown Sex and Gender Information Value Date Recorded Sex Assigned at Not on file Legal Sex Female 10:25 AM CDT Gender Identity Not on file Sexual Orientation Not on file Plan of Treatment Health Maintenance Due Date Last Done Comments DTAP/TDAP/TD VACCINES (1 - Tdap) 07/09/2015 HEPATITIS B VACCINES (1 of 3 - 19+ 3-dose series) 07/09/2015 CERVICAL CANCER SCREENING 2017 PAP SMEAR 2017 PAP SMEAR 2017 INFLUENZA VACCINE (#1) 2023 HPV VACCINES Aged Out No longer eligi ble based on patient's age to complete this topic PNEUMOCOCCAL VACCINE 0-49 YEARS Aged Out No longer eligible based on patient's age to complete this topic Insurance [facility] [id number] Care Teams Imaging Administrator Relationship Specialty Start Date End Date Jaime Fung MD [facility] [place] [phone] PCP - General Family Practice 08/08/15
[2024-05-02 08:40] LABS: Hematocrit 37.5 % (37.0-47.0); Hemoglobin 11.5 g/dL (12.0-15.0); Mean Corpuscular HGB Conc 30.7 g/dl (32-36); Mean Corpuscular Hemoglobin 26.7 pg (26-34); Mean Corpuscular Volume 87.2 fl (80-100); Mean Platelet Volume 10.2 fl (7.4-10.4); Platelet Count Result 264 k/mm3 (150-375); Red Cell Distribution Width 12.8 % (11.5-14.5); White Blood Count 5.6 K/mm3 (4.5-10.0)
[2024-05-02 09:45] LABS: HIV 1/2 Ab P24 Ag Result Negative (Negative)
[2024-05-02 10:05] LABS: Hepatitis B Surface Antigen Negative (Negative)
[2024-05-02 15:16] LABS: Rubella IgG Antibody > 110.0 IU/ML
[2024-05-03 13:34] LABS: RPR Screen NON-REACTIVE (NON-REACTIVE)
[2024-05-03 15:34] LABS: CMV IgG Antibody >10.00 U/mL; Varicella IgG Antibody <1.00 S/CO
== END 2024-05-02 07:40 | disposition home or self-care (01) ==
LOC: ANHLAB 07:41
PROVIDERS: PCP Family Medicine Sports Medicine; Visit Provider Student in an Organized Health Care Education/Training Program
DX: N91.2 Amenorrhea, unspecified (principal)
CPT/HCPCS: 36415; 84702; 85027; 86592; 86644; 86703; 86747; 86762; 86787; 86850; 86900; 86901; 87086; 87340; G0432

== ENCOUNTER 2024-12-03 08:22 | Inpatient (IN) | payer OTHER, SELFPAY ==
--- OUTSIDE RECORDS SUMMARY | 2016-02-10 18:00 | XMS_ITS | Continuity of Care Document ---
Author Organization [facility] Address [address] [place] [address] Phone Care Team Providers Care Automotive Starter Repairer Name Role Phone Unavailable Unavailable Unavailable Advance Directives Directive Yes / No Effective Date File Name No Information Encounters Encounter Description Practice Location Reason(s) For Visit Diagnoses Date Provider Providers Copied on Encounter [facility], [address] [facility], [place], [place], [id number], tel:[phone] [facility] No Information 7 No Information Referring Provider: LINN TINEO, [address] [place] [address],[place], [address]. tel:[phone] Family History Family Member Type Diagnosis Age At Onset No Information Payers Payer name Insurance type Covered alliance party ID Authoriza tieric(s) [facility] POS [id number] CI [id number] Social History Type Description Quantity Date Captured Comments Sex Female Smoking Status No Information Chief Complaint And Reason For Visit No Information History Of Present Illness Encounter Date Complaint History Of Prese nt Illness No Information Instructions Date Instruction Additional Infor mation No Information Assessments Type Assessment Date No Information
[2024-12-03] VITALS (63 sets, daily range): BP systolic 98–148; BP diastolic 48–97; PULSE 47–104; RESP 14–16; TEMP 36.2–36.6; O2SAT 95–100; BMI 27.8
[2024-12-03] MEDS: ACETAMINOPHEN 500 MG TABLET 1000 MG PO ×2 (09:00→23:10)
[2024-12-03 09:06] LABS: Hematocrit 34.1 % (37.0-47.0); Hemoglobin 10.9 g/dL (12.0-15.0); Immature Granulocyte Percent A 0.4 % (0-0.5); Lymphocytes Absolute Auto 1.28 K/mm3 (0.9-3.2); Mean Corpuscular HGB Conc 32.0 g/dl (32-36); Mean Corpuscular Hemoglobin 25.6 pg (26-34); Mean Corpuscular Volume 80.2 fl (80-100); Nucleated Red Blood Cells Absolute Auto 0.000 K/mm3 (0.0-0.012); Nucleated Red Blood Cells Perc 0.0 % (0.0-0.2); Platelet Count Result 228 k/mm3 (150-375); Red Blood Count 4.25 M/mm3 (4.2-5.4); White Blood Count 9.9 K/mm3 (4.5-10.0)
[2024-12-03] MEDS: LACTATED RINGERS 1,000 ML 125 ML IV CONT ×2 (09:12→09:38)
[2024-12-03] MEDS: AZITHROMYCIN IV 500 MG in SODIUM CHLORIDE 0.9% IV 250 ML IVPB (09:12)
--- NOTE | 2024-12-03 09:13 | P.PNAN_ITS ---
Anes - Initial Pre Proc Eval Procedure: Operation Date: 12/14/24 12:00 Proposed Procedures p Repeat Section, Bilateral Salpingectomy - Harry Jose MD Date/Time: 12/03/24 09:13 Surgeon: Harry Jose MD Pre Op Diagnosis: Repeat C/S Patient Data Age: 29 Gender: F Height: 1.85 m Weight: 95.5 kg Last Vital Signs Pulse 70 12/03/24 09:01 BP 129/81 12/03/24 09:01 Allergies Allergy/AdvReac Type Severity Reaction Status Date / Time No Known Allergies Allergy Verified 12/03/24 09:14 Home Medications ?Medication ?Instructions ?Recorded ?Confirmed ?Type vits no.126-ferrous fum tablet PO 04/25/24 History 28 mg iron-folic acid 800 mcg tablet (Classic ) valacyclovir 500 mg tablet 500 mg PO DAILY #30 tabs 11/28/24 Rx (Valtrex) Laboratory Tests 12/03/24 08:59 WBC Pending RBC Pending Hgb Pending Hct Pending MCV Pending MCH Pending MCHC Pending RDW Pending Plt Count Pending MPV Pending Immature Gran % (Auto) Pending Neut % (Auto) Pending Lymph % (Auto) Pending [place]ome % (Auto) Pending Eos % (Auto) Pending Baso % (Auto) Pending Lymph # (Auto) Pending [place]ome # (Auto) Pending Eos # (Auto) Pending Baso # (Auto) Pending Abs Immat Gran (auto) Pending Absolute Neuts (auto) Pending Absolute Nucleated RBC Pending Nucleated RBC % Pending Patient hx anesthesia problems: none Family hx anesthesia problems: none Results Review: All pre-operative results and documents have been reviewed as part of the pre- operative evaluation. 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 Surgical History Surgical History History of delivery Family History Family History Other No pertinent family history Social History Social History Smoking status: Never smoker Second hand tobacco smoke exposure: No Alcohol intake: current Alcohol use details: rare Substance use: never Lack of Transportation: No Lack of Food: Never True Current Housing: I Have Housing Concerned About Future Housing: No Difficulty Paying Gas/Electric Bills: No Difficulty Paying for Meds: No Currently Unemployed: No Education: Master's Degree or Higher Difficulty w/ Childcare or Family Care: No Living arrangements: with family Occupation/Education: occupation Gender identity (if verbalized by the patient): Female Sexual Orientation (if Verbalized by the Patient): Straight or Heterosexual Spiritual care concerns: No Anes - Eval Final PreProcedure Day of Procedure 12/03/24 09:13 Patient weight: overweight Heart: regular rate and rhythm Lungs: clear to auscultation Airway: Mallampati scale class II Neurological: alert and oriented Last oral intake: >/= 8 hours ASA classification: II Emergent: no Anesthetic plan: proceed Anesthesia type and monitoring: regional spinal and standard monitoring Results Review: All pre-operative results and documents have been reviewed as part of the pre- operative evaluation. Informed Consent: The patient's anesthetic plan and its attendant risks and benefits were discussed with the patient/family/POA. Questions were solicited and answers provided to the satisfaction of the patient/family/POA.
--- NOTE | 2024-12-03 09:14 | LDADM ---
This patient, Adi Parish, was admitted to Labor/Delivery/Recovery 120 on 12/03/24 at 08:22. Plans for labor, pain management and were discussed with patient. Patient/family oriented to hospital policies and general routines including ID bracelet, bed and alarms, visiting hours, pain management, procedures, bathroom and other care routines, personal items, smoking policy, room service/diet and guest tray routines, security routines, and visiting hours. Patient/Family are encouraged to report perceived risks to care and to ask questions if they do not understand what they are told or what they should do. See OBIX for further documentation.
--- NOTE | 2024-12-03 09:29 | PM.IMHP ---
H&P: HPI History of Present Illness Date/Time: 12/03/24 09:29 Chief Complaint: intrauterine at term Narrative: 29 yo at 37w3 who presents with SROM. is complicated by prior . Patient also desires permanent sterilzation. Review of Systems Cardiovascular: Cardiovascular: Denies chest pain, Denies leg edema, Denies palpitations, Denies dyspnea and Denies dyspnea on exertion Respiratory: Respiratory: Denies cough, Denies dyspnea and Denies dyspnea on exertion Gastrointestinal: Gastrointestinal: Denies abdominal pain, Denies constipation, Denies diarrhea, Denies nausea and Denies vomiting Genitourinary: Genitourinary: Denies hematuria, Denies urinary frequency, Denies dysuria, Denies pelvic pain, Denies urinary incontinence and Denies vaginal discharge Neurologic: Reports system reviewed and no additional complaints, except as documented Psychiatric: Psychiatric: Reports no additional psychiatric complaints Endocrine: Endocrine: Denies palpitations PMFSH Past Medical History Medical History Suppression of menses 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 Surgical History Surgical History History of delivery Family History Family History Other No pertinent family history Social History Social History Smoking status: Never smoker Second hand tobacco smoke exposure: No Alcohol intake: current Alcohol use details: rare Substance use: never Lack of Transportation: No Lack of Food: Never True Current Housing: I Have Housing Concerned About Future Housing: No Difficulty Paying Gas/Electric Bills: No Difficulty Paying for Meds: No Currently Unemployed: No Education: Master's Degree or Higher Difficulty w/ Childcare or Family Care: No Living arrangements: with family Occupation/Education: occupation Gender identity (if verbalized by the patient): Female Sexual Orientation (if Verbalized by the Patient): Straight or Heterosexual Spiritual care concerns: No Meds Home Medications and Allergies Home Medications ?Medication ?Instructions ?Recorded ?Confirmed ?Type vits no.126-ferrous fum tablet PO 04/25/24 11/13/24 History 28 mg iron-folic acid 800 mcg tablet (Classic ) valacyclovir 500 mg tablet 500 mg PO DAILY #30 tabs 11/28/24 11/28/24 Rx (Valtrex) Allergies Allergy/AdvReac Type Severity Reaction Status Date / Time No Known Allergies Allergy Verified 12/03/24 09:14 Vital Signs Vital Signs - 24 hr 12/03/24 08:46 12/03/24 09:01 12/03/24 09:16 Pulse Rate 70 70 76 Blood Pressure 133/74 129/81 128/81 Oxygen Delivery 12/03/24 09:24 Pulse Rate Blood Pressure Oxygen Delivery Room Air Exam Const: General: no acute distress Eyes: EOM: EOMs intact bilaterally Neck: Neck: supple Thyroid: thyroid normal Chest: Breast/axilla inspection: normal inspection of the breasts Breast/axilla palpation: normal palpation of the breasts, normal palpation of the axillae and no axillary lymphadenopathy Resp: Effort & Inspection: normal respiratory effort Auscultation: clear to auscultation bilaterally Cardio: Rate: regular rate Rhythm: regular rhythm GI: Inspection: non-distended and other (Gravid) GI Palp: Yes Soft to palpation, No Tenderness to palpation present (GI) and No Guarding due to palpation present (GI) Auscultation: normal bowel sounds : Speculum Exam - Vagina: No vaginal bleeding OB/external & speculum: external exam normal; No vaginal bleeding Skin: General skin exam: normal color and no rashes or lesions noted Neuro: Cognition (Neuro): normal cognition Speech: normal speech Extrem: General: normal to inspection Psych: Mental Status: mental status grossly normal Affect: normal affect H&P: Results Labs Labs: Short CBC 12/03/24 Range/Units 08:59 WBC 9.9 (4.5-10.0) K/mm3 Hgb 10.9 L (12.0-15.0) g/dL Hct 34.1 L (37.0-47.0) % Plt Count 228 (150-375) k/mm3 Assessment and Plan Assessment and plan (1) : Code(s): Z34.90 - Encounter for supervision of normal , unspecified, unspecified trimester Status: Acute Assessment and Plan: 29 yo presents with SROM prenatals reviewed Rh+ GBS neg (2) History of delivery: Code(s): Z98.891 - History of uterine scar from previous surgery Status: Acute Assessment and Plan: plan for repeat (3) Encounter for sterilization: Code(s): Z30.2 - Encounter for sterilization Status: Acute Assessment and Plan: plan for bilateral salpingectomy at the time of
--- NOTE | 2024-12-03 09:33 | WPDHPUPDATE1 ---
History and Physical Update Update Date/Time: 12/03/24 09:33 History and Physical has been reviewed, including an updated exam of the patient. There are NO changes in the patient's condition. Risks, benefits, and alternatives have been discussed and questions answered. Patient agrees to proceed with procedure.
[2024-12-03] MEDS: FAMOTIDINE 20 MG/2 ML VIAL IV PUSH (09:34)
[2024-12-03] MEDS: ONDANSETRON INJ 4 MG/2 ML VIAL IV PUSH ×2 (09:34→13:31)
[2024-12-03] MEDS: ceFAZolin 2 GM in SODIUM CHLORIDE 0.9% IV 50 ML 100 ML IVPB (09:44)
[2024-12-03 09:50] LABS: Syphilis IgG/IgM Antibody Non-Reactive (Nonreactive)
--- NOTE | 2024-12-03 10:46 | W.PM.OBCSD ---
OB - Delivery Note Procedure Delivery date: 12/03/24 Pre-op diagnosis: Previous Delivery Post-op Diagnosis: Same Induction method: None Delivery monitor: External FHT Prior to decision for section, ACOG/SMFM labor guidelines were considered and discussed with the patient and staff. Decision made to proceed with the section.: Yes Procedure Performed: Repeat Secondary branch: low cervical, transverse and Tubal Ligation Surgeon: Harry Jose MD Anesthesia type: Spinal Description of Procedure/Findings: The patient was taken to the operating room where epidural anesthesia was found to be adequate. She was then prepped and draped in the usual sterile fashion in the dorsal supine position with a leftward tilt. A Pfannenstiel skin incision was then made with the scalpel and carried through to the underlying layer of fascia. The fascia was then incised in the midline and the incision extended laterally with the Li scissors. The superior aspect of the fascia was then grasped with the Lila clamps, elevated, and the underlying rectus muscles dissected off bluntly and sharply. Attention was then turned to the inferior aspect of this incision which, in a similar fashion, was grasped, tented up with the Lila clamps, and the rectus muscles dissected off both bluntly and sharply. The rectus muscles were then in the midline, and the peritoneum identified, tented up, and entered sharply with the Metzenbaum scissors. The peritoneal incision was then extended superiorly and inferiorly with good visualization of the bladder. A ring retractor was used for better visualization. The vesicouterine peritoneum identified, grasped with the pick-ups and entered sharply with the Metzenbaum scissors. This incision was then extended laterally and the bladder flap created digitally. The lower uterine segment was incised in a low, transverse fashion with the scalpel. The uterine incision was then extended laterally bluntly. The hysterotomy was noted to be too tight to easily deliver the head. Forceps were applied to help guide the head out of the hysterotomy with fundal pressure. The infant?s head delivered atraumatically. The nose and mouth were suctioned with the bulb suction, and the remainder of the was delivered atraumatically. The cord was clamped and cut. The infant was handed off to the waiting pediatricians (staff). Cord gasses were sent. The placenta was then removed manually, the uterus exteriorized, and cleared of all clots and debris. The uterine incision was repaired with 0 vicryl in a running fashion. Both fallopian tubes were identified and followed out to the fimbriae bilaterally. The left fallopian tube was grasped with Babcocks and elevated. The fallopian tube was transected along the inferior mesosalpinx using the Ligasure device. The fallopian tube was completely transected at the uterine corpus. . The same procedure was repeated for the right fallopian tube. The uterus was returned to the abdomen. The uterus was then reinspected to ensure hemostasis as were all subfascial tissues. The peritoneum was re-approximated with vicryl in a running fashion. The fascia was reapproximated with 0 vicryl in a running fashion. The subcutaneous layer was copiously irrigated to clear any clots or debris. The skin was closed with 4-0 vicryl. The patient tolerated the procedure well. Sponge, lap and needle counts were correct times three. The patient was taken to the recovery room in stable condition. Specimen: No Estimated Blood Loss: 225 Urine Output: 150 Drains: No Packing: No Pathology: Yes (bilateral fallopian tubes) Complications: No immediate complications Condition: Stable Disposition: Floor Baby Date of : 12/03/24 Gestational Age by Date: 37 gender: Female presentation: vertex Placenta delivery description: Manual Removal Cord Vessel Description: 3 Vessels
[2024-12-03] MEDS: LIDOCAINE 5% PATCH 1 PATCH TRANSDERM (10:57)
[2024-12-03] MEDS: OXYTOCIN 30 UNITS/NS 500 ML 30 UNITS/500 ML BAG 125 UNITS IV CONT (11:02)
--- NOTE | 2024-12-03 12:20 | S_PTH ---
PATIENT: Adi Parish LOC: [facility] U#:[id number] AGE/SX: 29/F ROOM: 288 RE12/03/[address]: Harry Jose MD : 1995 BED: 00 DIS: 12/05/2024 SPEC #: [id number] RECD: 12/04/24 07:09 STATUS: KARISHMA RENoreen #: [id number] MARIAM: 12/03/24 12:[address]: Harry Jose DEPT: [facility] Surgical RECD BY: Debbie Rodríguez ENTERED: 12/04/24 07:09 SP TYPE: Surgical OTHR DR: UNKNOWN,DOCTOR Tissues: A - Fallopian Tube Bilateral Procedures: Gross and Microscopic Level 2 Hematoxylin and Eosin Stain
--- NOTE | 2024-12-03 13:18 | OBPPTRN ---
1305- Patient transferred to post room #288 via stretcher. Support person present. Oriented to unit, room, information board, rooming in, admission packet and security measures. Patient verbalizes understanding.
[2024-12-03 13:30] LABS: OBXCEM ROM Plus Positive (Negative)
[2024-12-03] MEDS: DEXTROSE 5%/0.45% SOD CHL 1,000 ML 125 ML IV CONT (14:44)
[2024-12-03] MEDS: DEXTROSE 5%/0.45% SOD CHL 1,000 ML 125 ML (14:44)
[2024-12-03] MEDS: KETOROLAC 15 MG/ML VIAL (*BKC) IV PUSH ×2 (17:05→23:10)
[2024-12-03] MEDS: KCL 20 MEQ/D5/0.45% SOD CHL 1,000 ML 125 ML IV CONT (23:08)
[2024-12-04 00:15] VITALS: BP 118/77; PULSE 54; RESP 16; TEMP 36.6; O2SAT 96
[2024-12-04] MEDS: LACTATED RINGERS 1,000 ML 999 ML IV CONT (00:47)
[2024-12-04] MEDS: ACETAMINOPHEN 500 MG TABLET 1000 MG PO ×3 (04:47→17:49)
[2024-12-04] MEDS: KETOROLAC 15 MG/ML VIAL (*BKC) IV PUSH (04:48)
[2024-12-04 05:02] LABS: Hematocrit 30.4 % (37.0-47.0); Hemoglobin 9.6 g/dL (12.0-15.0); Immature Granulocyte Percent A 0.4 % (0-0.5); Lymphocytes Absolute Auto 2.32 K/mm3 (0.9-3.2); Mean Corpuscular HGB Conc 31.6 g/dl (32-36); Mean Corpuscular Hemoglobin 25.7 pg (26-34); Mean Corpuscular Volume 81.3 fl (80-100); Nucleated Red Blood Cells Absolute Auto 0.000 K/mm3 (0.0-0.012); Nucleated Red Blood Cells Perc 0.0 % (0.0-0.2); Platelet Count Result 213 k/mm3 (150-375); Red Blood Count 3.74 M/mm3 (4.2-5.4); White Blood Count 11.7 K/mm3 (4.5-10.0)
[2024-12-04 07:25] VITALS: BP 134/89; PULSE 53; RESP 16; TEMP 37.1; O2SAT 98
--- NOTE | 2024-12-04 08:10 | PC.NURSE ---
Introductions were made, then consulted with patient to assess needs related to . Discussed with mother the option of getting a hospital breast pump provided to her so that she can pump while infant is not going to breast. She declines needing a breast pump or any assistance at this time. Resources provided for inpatient and outpatient services with the feeding sheet, mom/baby guide and name written on the communication board. Mother voiced understanding of information and will call if there is a request for assistance. Reported to the Primary RN.
[2024-12-04] MEDS: MULTIVIT/MIN/PREN/FOL AC/IRON TABLET 1 TAB PO (09:01)
[2024-12-04] MEDS: SIMETHICONE 80 MG TAB.CHEW PO ×3 (09:10→17:07)
[2024-12-04] MEDS: IBUPROFEN 600 MG TABLET PO ×2 (12:04→17:49)
--- NOTE | 2024-12-04 12:59 | WPDANLDNPN2 ---
Anes-Prog Note L&D-Neuraxial Date/Time: 12/04/24 12:59 Neuraxial medications: intrathecal PF morphine Opiod-related complaints: none Patient feedback: Patient satisfied with post-operative pain management.
--- NOTE | 2024-12-04 12:59 | WPDANLDPN2 ---
Anes-Prog Note L&D Date/Time: 12/04/24 12:59 Comfortable throughout: section Neuraxial method: spinal Epidural/Spinal procedure site: clean & non-tender Neuro status: Neuro function grossly intact. Cardiovascular status: normal Respiratory status: normal Airway patency: baseline Mental status: baseline Post-Op hydration status: normal Vital Signs: Last Vital Signs Temp 37.1 C 12/04/24 07:25 Pulse 53 L 12/04/24 07:25 Resp 16 12/04/24 07:25 BP 134/89 12/04/24 07:25 Pulse Ox 98 12/04/24 07:25 O2 Del Method Room Air 12/03/24 12:45 Pain score (VAS): 2 I/O: Intake & Output 12/03/24 12/04/24 12/04/24 23:59 07:59 15:59 Intake Total 100 2720 Output Total 120 560 250 Balance -20 2160 -250 Patient feedback: Patient satisfied with anesthetic care.
[2024-12-04] MEDS: LIDOCAINE 5% PATCH 1 PATCH TRANSDERM (14:46)
--- NOTE | 2024-12-04 15:30 | PC.NURSE ---
Breast pump provided due to [patient request]. Instructions given on cleaning, care, usage, that there should be no pain, pumping schedule for milk production, collection, and storage of human milk. Patient was assessed for correct placement, flange size, to pump for adequate milk production every 3 hours (8 times in 24 hours). Mother is encouraged to put baby to breast first and then pump.?Advised leaving milk at bedside to be used at the next feeding (within 4 hours). Mother voiced understanding of the education shared along with mom/baby guide for additional resource information. Reported to the Primary RN.
[2024-12-04] MEDS: DOCUSATE SODIUM 100 MG CAPSULE PO (17:07)
[2024-12-04 19:22] VITALS: BP 139/88; PULSE 60; RESP 20; TEMP 37.1; O2SAT 98
[2024-12-04] MEDS: oxyCODONE HCL (*CRX) 5 MG TAB IR PO (19:34)
[2024-12-05] MEDS: ACETAMINOPHEN 500 MG TABLET 1000 MG PO ×2 (00:02→05:33)
[2024-12-05] MEDS: IBUPROFEN 600 MG TABLET PO ×2 (00:02→05:33)
[2024-12-05 07:41] VITALS: BP 136/90; PULSE 55; RESP 19; TEMP 36.6; O2SAT 97
[2024-12-05] MEDS: DOCUSATE SODIUM 100 MG CAPSULE PO (08:57)
[2024-12-05] MEDS: MULTIVIT/MIN/PREN/FOL AC/IRON TABLET 1 TAB PO (08:57)
[2024-12-05] MEDS: SIMETHICONE 80 MG TAB.CHEW PO (08:57)
--- NOTE | 2024-12-05 09:58 | P.DS_ITS ---
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 DS: Discharge Diagnosis Discharge Diagnosis (1) delivery delivered: Code(s): O82 - Encounter for delivery without indication Status: Acute (2) Encounter for sterilization: Code(s): Z30.2 - Encounter for sterilization Status: Acute OB - DS: Summary OB Procedures : None OB Procedures Intrapartum: and Tubal ligation OB Procedures: : None Peripartum Data Delivery Method: Section Procedures: Procedures Operation Date: 12/03/24 09:45 Actual Procedure Side Surgeon p Section Harry Jose MD complications: none Status at Discharge Functional status at discharge: independent ambulation Overall status at discharge: patient is progressing back to baseline Time Spent with Patient Time attestation: Total time spent providing and/or coordinating discharge services: Time spent: Less than 30 minutes Exam Const: General: comfortable and no acute distress Resp: Effort & Inspection: normal respiratory effort Auscultation: clear to auscultation bilaterally Cardio: Rate: regular rate GI: Inspection: non-distended GI Palp: Yes Soft to palpation, No Firmness to palpation present (GI), Yes Tenderness to palpation present (GI) (mild tenderness over incision ) and No Guarding due to palpation present (GI) Auscultation: normal bowel sounds Psych: Appearance: grossly normal Mental Status: mental status grossly normal DS: Data Data Completed and Pending Pending studies at discharge: Pending at discharge 12/03/24 12:20 Surgical [PTH] Routine Discharge Plan Discharge Discharging Clinician: Harry Jose Patient Disposition: Home Activity: as tolerated and pelvic rest Diet: regular Patient Instructions: Antibiotic Form, (DC) Patient Language: Albanian Stand Alone Forms: General Discharge Information Follow-up/Referrals: Harry Jose MD [Physician, SYSTEM DEVELOPER ASSOCIATE MANAGER] Discharge Medications: New oxycodone-acetaminophen 5-325 mg tablet 1 tablet PO Q6H PRN (Reason: pain) Qty: 28 0RF polysaccharide iron complex 150 mg iron Capsule 150 mg PO BIDWM Qty: 60 0RF docusate sodium 100 mg Capsule 100 mg PO BID PRN (Reason: Constipation) Qty: 30 0RF ibuprofen 600 mg tablet 600 mg PO Q6H PRN (Reason: pain) Qty: 30 0RF Continued Classic 28 mg iron- 800 mcg tablet PO valacyclovir [Valtrex] 500 mg tablet 500 mg PO DAILY Qty: 30 0RF Date of admission: 12/03/24 08:22 Primary Care Provider: UNKNOWN,DOCTOR Admitting Provider: Harry Jose Attending physician on admission: Harry Jose Condition: Stable
[2024-12-06 09:21] VITALS: BP 138/77; PULSE 62; RESP 18; TEMP 36.7; O2SAT 99
== END 2024-12-05 13:30 | disposition home or self-care (01) | DRG 784 ==
LOC: ANHLDR 08:40 → ANHOB2 13:14
PROVIDERS: Admitting Provider Student in an Organized Health Care Education/Training Program; Visit Provider Student in an Organized Health Care Education/Training Program
PROC: (CPT 59514; principal; 2024-12-14 12:00)
DX: O34.211 Maternal care for low transverse scar from previous cesarean delivery (principal); O98.32 Other infections with a predominantly sexual mode of transmission complicating childbirth; Z37.0 Single live birth; Z3A.37 37 weeks gestation of pregnancy; A60.09 Herpesviral infection of other urogenital tract; Z30.2 Encounter for sterilization
CPT/HCPCS: 36415; 84112; 85025; 86593; 86850; 86900; 86901; 88302; J0690; A9270; J0456; J1100; J1885; J2274; J2405; J2590; J3480; J7050; J7120

== ENCOUNTER 2024-12-11 12:30 | Observation (INO) | payer OTHER, SELFPAY ==
[2024-12-11] VITALS (96 sets, daily range): BP systolic 127–185; BP diastolic 74–107; PULSE 48–113; RESP 14–16; TEMP 36.7–37.6; O2SAT 95–100
[2024-12-11] MEDS: LACTATED RINGERS 1,000 ML 75 ML IV CONT ×2 (12:10→23:31)
[2024-12-11 12:36] LABS: Hematocrit 31.3 % (37.0-47.0); Hemoglobin 9.7 g/dL (12.0-15.0); Immature Granulocyte Percent A 0.3 % (0-0.5); Lymphocytes Absolute Auto 2.09 K/mm3 (0.9-3.2); Mean Corpuscular HGB Conc 31.0 g/dl (32-36); Mean Corpuscular Hemoglobin 25.2 pg (26-34); Mean Corpuscular Volume 81.3 fl (80-100); Nucleated Red Blood Cells Absolute Auto 0.000 K/mm3 (0.0-0.012); Nucleated Red Blood Cells Perc 0.0 % (0.0-0.2); Platelet Count Result 307 k/mm3 (150-375); Red Blood Count 3.85 M/mm3 (4.2-5.4); White Blood Count 7.2 K/mm3 (4.5-10.0)
[2024-12-11 12:48] LABS: Alanine Aminotransferase 29 U/L (6-35); Albumin Level 3.4 g/dL (3.5-5.1); Alkaline Phosphatase 103 U/L (38-126); Anion Gap 4 mmol/L (4-12); Aspartate Amino Transferase 38 U/L (14-36); Bilirubin,Total 0.7 mg/dL (0.2-1.3); Blood Urea Nitrogen 14 mg/dL (7-17); Calcium 8.5 mg/dL (8.4-10.2); Carbon Dioxide 22 mmol/L (22-30); Chloride 109 mmol/L (98-107); Estimated Glomerular Filt Rate > 60; Glucose 103 mg/dL (65-110); Potassium 3.8 mmol/L (3.4-5.0); Sodium 135 mmol/L (137-145); Total Protein 6.4 g/dL (6.3-8.2); Uric Acid 5.3 mg/dL (2.5-7.5)
[2024-12-11] MEDS: MAGNESIUM SULF 4 GM/WATER100ML 4 GM/100 ML BAG IVPB (13:08)
--- OUTSIDE RECORDS SUMMARY | 2024-12-11 13:23 | XMS_ITS | Clinical Summary ---
Author Organization [facility] - 2021 [address] [facility] [address] [place] [address] Phone Care Team Providers Care Bass Singer Name Role Phone Jiame Fung MD Primary Care Provider [phone] Social History Tobacco Use Types Packs/Day Years [...] (1 of 3 - 19+ 3-dose series) 06/10 CERVICAL CANCER SCREENING 2017 HPV/Cotest (21-29) 2017 PAP SMEAR 2017 HPV VACCINES (1 - 3-dose SCDM series) 07/09/2023 INFLUENZA VACCINE (#1) [address] [facility] [employer] PPO [id number] Care Teams Bass Singer Relationship Specialty Start Date End Date Jaime Fung MD [address] [place] [phone] PCP - General Family Practice 08/08/15
[2024-12-11] MEDS: MAGNESIUM SULF 20GM/WATER500ML 500 ML 50 MG IV CONT ×2 (13:41→23:30)
--- NOTE | 2024-12-11 13:52 | PC.NURSE ---
0477--Phone call to Dr. Jose re: pt. presenting with elevated BP's, recent recurrent h/a, epigastric pain and 3+ pitting edema to BLE. Reported labwork drawn and sent and IV placed. Orders to start severe HTN protocol with labetalol as first line med.
--- NOTE | 2024-12-11 13:53 | PC.NURSE ---
0778--Phone call to Dr. Jose to report unable to give IV labetalol r/t HR in the 50's and requesting another BP med at this time. Orders to start Magnesium sulfate with 4gm loading dose and continuous 2gm/hr.
--- NOTE | 2024-12-11 14:05 | PC.NURSE ---
4290--Phone call received from Dr. Jose requesting update on labs and BP's. After update given, orders received for IV hydralazine.
[2024-12-11] MEDS: ACETAMINOPHEN 500 MG TABLET 1000 MG PO ×2 (16:48→23:40)
--- NOTE | 2024-12-11 16:48 | PM.IMHP ---
H&P: HPI History of Present Illness Date/Time: 12/11/24 16:48 Chief Complaint: preeclampsia Narrative: 29-year-old female who presents 8 days from repeat with complaints of elevated blood pressure, headache, right upper quadrant pain, swelling. Patient was noted to have severe range blood pressures on admission to L&D Review of Systems Cardiovascular: Cardiovascular: Denies chest pain, Denies leg edema, Denies palpitations, Denies dyspnea and Denies dyspnea on exertion Respiratory: Respiratory: Denies cough, Denies dyspnea and Denies dyspnea on exertion Gastrointestinal: Gastrointestinal: Denies abdominal pain, Denies constipation, Denies diarrhea, Denies nausea and Denies vomiting Genitourinary: Genitourinary: Denies hematuria, Denies urinary frequency, Denies dysuria, Denies pelvic pain, Denies urinary incontinence and Denies vaginal discharge Neurologic: Reports system reviewed and no additional complaints, except as documented Psychiatric: Psychiatric: Reports no additional psychiatric complaints Endocrine: Endocrine: Denies palpitations PMFSH Past Medical History Medical History Suppression of menses 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 Surgical History Surgical History History of delivery Family History Family History Other No pertinent family history Social History Social History Smoking status: Never smoker Second hand tobacco smoke exposure: No Alcohol intake: current Alcohol use details: rare Substance use: never Lack of Transportation: No Lack of Food: Never True Current Housing: I Have Housing Concerned About Future Housing: No Difficulty Paying Gas/Electric Bills: No Difficulty Paying for Meds: No Currently Unemployed: No Education: Master's Degree or Higher Difficulty w/ Childcare or Family Care: No Living arrangements: with family Occupation/Education: occupation Gender identity (if verbalized by the patient): Female Sexual Orientation (if Verbalized by the Patient): Straight or Heterosexual Spiritual care concerns: No Meds Home Medications and Allergies Home Medications ?Medication ?Instructions ?Recorded ?Confirmed ?Type vits no.126-ferrous fum 1 tablet PO .daily 04/25/24 12/11/24 History 28 mg iron-folic acid 800 mcg tablet (Classic ) ibuprofen 600 mg tablet 600 mg PO Q6H PRN pain #30 tabs 12/05/24 12/11/24 Rx acetaminophen 500 mg capsule 1,000 mg PO Q6H PRN pain 12/11/24 12/11/24 History Allergies Allergy/AdvReac Type Severity Reaction Status Date / Time No Known Allergies Allergy Verified 12/03/24 09:14 Vital Signs Vital Signs - 24 hr 12/11/24 12:05 12/11/24 12:15 12/11/24 12:20 Temperature 98.9 F Pulse Rate 52 L 53 L Respiratory Rate Blood Pressure 185/103 H 180/102 H Pulse Oximetry 12/11/24 12:30 12/11/24 12:43 12/11/24 12:45 Temperature Pulse Rate 52 L 52 L Respiratory Rate Blood Pressure 169/98 H 170/104 H Pulse Oximetry 96 12/11/24 12:48 12/11/24 12:53 12/11/24 12:58 Temperature Pulse Rate Respiratory Rate Blood Pressure Pulse Oximetry 96 95 98 12/11/24 13:00 12/11/24 13:03 12/11/24 13:08 Temperature Pulse Rate 48 L Respiratory Rate Blood Pressure 181/96 H Pulse Oximetry 98 98 12/11/24 13:13 12/11/24 13:15 12/11/24 13:18 Temperature Pulse Rate 49 L Respiratory Rate Blood Pressure 163/99 H Pulse Oximetry 97 98 12/11/24 13:23 12/11/24 13:28 12/11/24 13:30 Temperature Pulse Rate 51 L Respiratory Rate Blood Pressure 151/102 H Pulse Oximetry 98 97 12/11/24 13:33 12/11/24 13:38 12/11/24 13:40 Temperature Pulse Rate Respiratory Rate 15 Blood Pressure Pulse Oximetry 96 97 12/11/24 13:43 12/11/24 13:46 12/11/24 13:48 Temperature Pulse Rate 52 L Respiratory Rate Blood Pressure 162/101 H Pulse Oximetry 98 97 12/11/24 13:53 12/11/24 13:58 12/11/24 14:00 Temperature Pulse Rate 49 L Respiratory Rate Blood Pressure 167/107 H Pulse Oximetry 99 99 12/11/24 14:03 12/11/24 14:08 12/11/24 14:13 Temperature Pulse Rate Respiratory Rate Blood Pressure Pulse Oximetry 98 100 99 12/11/24 14:15 12/11/24 14:18 12/11/24 14:27 Temperature Pulse Rate 55 L Respiratory Rate Blood Pressure 156/93 H Pulse Oximetry 99 100 12/11/24 14:30 12/11/24 14:32 12/11/24 14:37 Temperature Pulse Rate 55 L Respiratory Rate Blood Pressure 157/88 H Pulse Oximetry 100 100 12/11/24 14:42 12/11/24 14:45 12/11/24 14:47 Temperature Pulse Rate 54 L Respiratory Rate Blood Pressure 156/89 H Pulse Oximetry 100 100 12/11/24 14:52 12/11/24 14:57 12/11/24 15:00 Temperature Pulse Rate 54 L Respiratory Rate Blood Pressure 154/90 H Pulse Oximetry 100 99 12/11/24 15:02 12/11/24 15:07 12/11/24 15:12 Temperature Pulse Rate Respiratory Rate Blood Pressure Pulse Oximetry 99 100 100 12/11/24 15:20 12/11/24 15:25 12/11/24 15:30 Temperature Pulse Rate 72 Respiratory Rate Blood Pressure 152/94 H Pulse Oximetry 100 99 98 12/11/24 15:35 12/11/24 15:40 12/11/24 15:45 Temperature Pulse Rate Respiratory Rate Blood Pressure Pulse Oximetry 99 98 98 12/11/24 15:50 12/11/24 15:55 12/11/24 16:00 Temperature Pulse Rate 84 Respiratory Rate Blood Pressure 142/78 H Pulse Oximetry 99 98 97 12/11/24 16:05 12/11/24 16:10 12/11/24 16:15 Temperature Pulse Rate Respiratory Rate Blood Pressure Pulse Oximetry 99 100 100 12/11/24 16:20 12/11/24 16:25 12/11/24 16:30 Temperature Pulse Rate 96 Respiratory Rate Blood Pressure 135/83 Pulse Oximetry 100 100 100 12/11/24 16:35 12/11/24 16:40 12/11/24 16:45 Temperature Pulse Rate Respiratory Rate Blood Pressure Pulse Oximetry 100 99 99 Exam Const: General: no acute distress Eyes: EOM: EOMs intact bilaterally Neck: Neck: supple Thyroid: thyroid normal Chest: Breast/axilla inspection: normal inspection of the breasts Breast/axilla palpation: normal palpation of the breasts, normal palpation of the axillae and no axillary lymphadenopathy Resp: Effort & Inspection: normal respiratory effort Auscultation: clear to auscultation bilaterally Cardio: Rate: regular rate Rhythm: regular rhythm GI: Inspection: non-distended GI Palp: Yes Soft to palpation, No Tenderness to palpation present (GI) and No Guarding due to palpation present (GI) Auscultation: normal bowel sounds : General: No bladder normal to palpation External Female Exam: normal external appearance Speculum Exam - Vagina: normal vaginal discharge and No vaginal bleeding Speculum Exam - Cervix: nontender Bimanual exam- vagina & uterus: No bladder normal to palpation and No Cervical tenderness present OB/external & speculum: No vaginal bleeding Skin: General skin exam: normal color and no rashes or lesions noted Neuro: Cognition (Neuro): normal cognition Speech: normal speech Extrem: General: normal to inspection and no edema Psych: Mental Status: mental status grossly normal Affect: normal affect H&P: Results Labs Labs: Short CBC 12/11/24 Range/Units 12:26 WBC 7.2 (4.5-10.0) K/mm3 Hgb 9.7 L (12.0-15.0) g/dL Hct 31.3 L (37.0-47.0) % Plt Count 307 (150-375) k/mm3 BMP 12/11/24 12:26 Sodium 135 L Potassium 3.8 Chloride 109 H Carbon Dioxide 22 BUN 14 Creatinine 0.70 Glucose 103 Calcium 8.5 Liver Function 12/11/24 Range/Units 12:26 Total Bilirubin 0.7 (0.2-1.3) mg/dL AST 38 H (14-36) U/L ALT 29 (6-35) U/L Alkaline Phosphatase 103 (38-126) U/L Albumin 3.4 L (3.5-5.1) g/dL Assessment and Plan Assessment and plan (1) Severe pre-eclampsia, : Code(s): O14.15 - Severe pre-eclampsia, complicating the puerperium Status: Acute Assessment and Plan: patient presents 8 days with severe range blood pressures Patient also reports headache, swelling, right upper quadrant pain Patient diagnosed with preeclampsia Will administer magnesium sulfate Patient received IV hydralazine Will continue to monitor blood pressures
--- NOTE | 2024-12-11 21:06 | OBADM ---
This patient, Adi Parish, admitted to the OB room OB Post 116 for observation. Patient/family oriented to hospital policies and general routines including ID bracelet, bed and alarms, visiting hours, pain management, procedures, bathroom and other care routines, personal items, smoking policy, room service/diet, and visiting hours. Patient/Family are encouraged to report perceived risks to care and to ask questions if they do not understand what they are told or what they should do.
[2024-12-12 02:49] VITALS: PULSE 69; O2SAT 98
[2024-12-12 02:50] VITALS: BP 138/87; PULSE 64
[2024-12-12 03:02] VITALS: BP 138/87; PULSE 64; RESP 16; TEMP 37; O2SAT 98
[2024-12-12 05:27] LABS: Hematocrit 33.9 % (37.0-47.0); Hemoglobin 10.7 g/dL (12.0-15.0); Immature Granulocyte Percent A 0.5 % (0-0.5); Lymphocytes Absolute Auto 1.33 K/mm3 (0.9-3.2); Mean Corpuscular HGB Conc 31.6 g/dl (32-36); Mean Corpuscular Hemoglobin 25.7 pg (26-34); Mean Corpuscular Volume 81.3 fl (80-100); Nucleated Red Blood Cells Absolute Auto 0.000 K/mm3 (0.0-0.012); Nucleated Red Blood Cells Perc 0.0 % (0.0-0.2); Platelet Count Result 308 k/mm3 (150-375); Red Blood Count 4.17 M/mm3 (4.2-5.4); White Blood Count 6.6 K/mm3 (4.5-10.0)
[2024-12-12] MEDS: IBUPROFEN 600 MG TABLET PO (05:27)
[2024-12-12 05:47] LABS: Alanine Aminotransferase 24 U/L (6-35); Albumin Level 3.3 g/dL (3.5-5.1); Alkaline Phosphatase 111 U/L (38-126); Anion Gap 5 mmol/L (4-12); Aspartate Amino Transferase 24 U/L (14-36); Bilirubin,Total 0.8 mg/dL (0.2-1.3); Blood Urea Nitrogen 14 mg/dL (7-17); Calcium 7.3 mg/dL (8.4-10.2); Carbon Dioxide 23 mmol/L (22-30); Chloride 107 mmol/L (98-107); Estimated Glomerular Filt Rate > 60; Glucose 93 mg/dL (65-110); Potassium 4.0 mmol/L (3.4-5.0); Sodium 135 mmol/L (137-145); Total Protein 6.3 g/dL (6.3-8.2); Uric Acid 5.5 mg/dL (2.5-7.5)
[2024-12-12 07:38] VITALS: BP 138/89; PULSE 66; PULSE 67; TEMP 36.5; O2SAT 98
[2024-12-12 12:08] VITALS: PULSE 83; O2SAT 98
[2024-12-12 12:09] VITALS: BP 146/91; PULSE 70
--- NOTE | 2024-12-12 13:18 | PC.NURSE ---
Called Dr. Jose with pt update. Informed of BPs. June D/C home to follow up in office in 1 week.
--- NOTE | 2024-12-12 16:25 | P.DS_ITS ---
DS: Admitting Diagnosis Discharge Date 12/12/24 Admitting Diagnosis preeclampsia DS: Discharge Diagnosis Discharge Diagnosis (1) Severe pre-eclampsia, : Code(s): O14.15 - Severe pre-eclampsia, complicating the puerperium Status: Acute DS: Summary Hospital Course Hospital Course: 29-year-old female who presented 8 days with increased edema, severe range blood pressures, headache, right upper quadrant pain. Patient received magnesium sulfate and required 1 dose of IV hydralazine. Patient remained normotensive on magnesium sulfate. Blood pressures were controlled off magnesium sulfate. Patient was discharged home in stable condition. Time Spent with Patient Time attestation: Total time spent providing and/or coordinating discharge services: Time spent: Less than 30 minutes Exam Const: General: cooperative and comfortable Eyes: EOM: EOMs intact bilaterally Neck: Neck: supple Thyroid: thyroid normal Chest: Breast/axilla inspection: normal inspection of the breasts Breast/axilla palpation: normal palpation of the breasts, normal palpation of the axillae and no axillary lymphadenopathy Resp: Effort & Inspection: normal respiratory effort Auscultation: clear to auscultation bilaterally Cardio: Rate: regular rate Rhythm: regular rhythm GI: Inspection: non-distended GI Palp: Yes Soft to palpation, No Tenderness to palpation present (GI) and No Guarding due to palpation present (GI) Auscultation: normal bowel sounds : General: No bladder normal to palpation External Female Exam: normal external appearance Speculum Exam - Vagina: normal vaginal discharge and No vaginal bleeding Speculum Exam - Cervix: nontender Bimanual exam- vagina & uterus: No bladder normal to palpation and No Cervical tenderness present OB/external & speculum: No vaginal bleeding Skin: General skin exam: normal color and no rashes or lesions noted Neuro: Cognition (Neuro): normal cognition Speech: normal speech Extrem: General: normal to inspection and no edema Psych: Mental Status: mental status grossly normal Affect: normal affect DS: Data Data Completed and Pending Labs on day of discharge: Labs from last 24 hours 12/12/24 05:16 WBC 6.6 RBC 4.17 L Hgb 10.7 L Hct 33.9 L MCV 81.3 MCH 25.7 L MCHC 31.6 L RDW 13.3 Plt Count 308 MPV 9.7 Immature Gran % (Auto) 0.5 Neut % (Auto) 71.4 Lymph % (Auto) 20.2 [place] % (Auto) 5.9 Eos % (Auto) 1.5 Baso % (Auto) 0.5 Lymph # (Auto) 1.33 [place] # (Auto) 0.4 Eos # (Auto) 0.1 Baso # (Auto) 0.0 Abs Immat Gran (auto) 0.03 Absolute Neuts (auto) 4.7 Absolute Nucleated RBC 0.000 Nucleated RBC % 0.0 Sodium 135 L Potassium 4.0 Chloride 107 Carbon Dioxide 23 Anion Gap 5 BUN 14 Creatinine 0.73 Estim Creat Clear Calc Not Reportable Estimated GFR > 60 Glucose 93 Uric Acid 5.5 Calcium 7.3 L Total Bilirubin 0.8 AST 24 ALT 24 Alkaline Phosphatase 111 Total Protein 6.3 Albumin 3.3 L Discharge Plan Discharge Consulting providers: Brodie Álvarez Discharging Clinician: Harry Jose Patient Disposition: Home Activity: as tolerated Diet: regular Discharge Instructions: OB ANTEPARTUM DISCHARGE INSTRUCTIONS This information is given to help you properly care for yourself at home after your discharge from the hospital. Follow these instructions until your doctor tells you otherwise. DIET: Eat Three Well Balanced Meals per Day Drink at Least Eight 8-Ounce Glasses of Caffeine-Free Beverages Daily Additional Diet Instructions: ACTIVITY: As Tolerated Increase Periods of Rest Additional Activity Instructions: RETURN TO LABOR AND DELIVERY IF YOU HAVE: Symptoms listed on handout. FOLLOW-UP CARE: Call Office and Make Appointment To see in/on 1 week Valuables released to patient or family? Medications from home returned to patient? I Acknowledge Receipt of and Understand the Above Instructions IF YOU HAVE ANY QUESTIONS REGARDING THESE INSTRUCTIONS, PLEASE CALL [phone]. IF PROBLEMS ARISE, CALL YOUR PROVIDER. IF EMERGENCY CARE IS NEEDED, [facility]S EMERGENCY ROOM IS AVAILABLE 24 HOURS A DAY. Patient Language: Scottish Stand Alone Forms: General Discharge Information Follow-up/Referrals: Harry Jose MD [Physician, TECHNICAL CUSTOMER SUPPORT SPECIALIST] Discharge Medications: Continued Classic 28 mg iron- 800 mcg tablet 1 tablet PO .daily ibuprofen 600 mg tablet 600 mg PO Q6H PRN (Reason: pain) Qty: 30 0RF acetaminophen 500 mg capsule 1,000 mg PO Q6H PRN (Reason: pain) Date of admission: 12/11/24 12:30 Primary Care Provider: PHYSICIAN,TAX SERVICES INTERN Admitting Provider: Harry Jose Attending physician on admission: Harry Jose Condition: Stable
== END 2024-12-12 13:45 | disposition home or self-care (01) ==
LOC: ANHOBOP 12-12 08:41 → ANHOBPP 12-12 08:41
PROVIDERS: Admitting Provider Student in an Organized Health Care Education/Training Program; Visit Provider Student in an Organized Health Care Education/Training Program
DX: O14.15 Severe pre-eclampsia, complicating the puerperium (principal)
CPT/HCPCS: 36415; 80053; 84550; 85025; 96365; 96366; 96375; A9270; G0378; G0379; J0360; J3475; J7120